=== PATIENT | male | born 1985 | race Caucasian/White ===

== ENCOUNTER 2022-04-15 17:32 | Emergency (ER) | payer OTHER, BC, SELFPAY ==
[2022-04-15 17:38] VITALS: BP 135/78; PULSE 103; RESP 16; TEMP 36.8; O2SAT 95; BMI 31.7
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
[2022-04-15] MEDS: tetanus-dipt-pertussis 0.5 mL SDV IM (18:30)
[2022-04-15] MEDS: amoxicillin-clav 875-125 mg Tablet 1 TAB PO (18:32)
[2022-04-15 18:55] VITALS: BP 146/82; PULSE 90; RESP 16; O2SAT 95
== END 2022-04-15 18:58 | disposition home or self-care (01) ==
PROVIDERS: Emergency Provider Physician Assistant; Family Provider Electrodiagnostic Medicine; PCP Electrodiagnostic Medicine
DX: S81.852A Open bite, left lower leg, initial encounter (principal); W54.0XXA Bitten by dog, initial encounter; Y99.0 Civilian activity done for income or pay; Z23 Encounter for immunization
CPT/HCPCS: 90471; 90715; 99283

== ENCOUNTER 2023-01-30 19:10 | Emergency (ER) | payer OTHER, SELFPAY ==
[2023-01-30 19:17] VITALS: BP 158/95; PULSE 88; RESP 17; TEMP 36.7; O2SAT 96; BMI 32.5
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
== END 2023-01-30 19:50 | disposition home or self-care (01) ==
PROVIDERS: Emergency Provider Nurse Practitioner Family; PCP Electrodiagnostic Medicine
DX: S86.112A Strain of other muscle(s) and tendon(s) of posterior muscle group at lower leg level, left leg, initial encounter (principal); Y35.811A Legal intervention involving manhandling, law enforcement official injured, initial encounter; Y99.0 Civilian activity done for income or pay
CPT/HCPCS: 99282

== ENCOUNTER 2023-02-19 11:55 | Outpatient (CLI) | payer OTHER, SELFPAY ==
--- NOTE | 2023-02-19 12:00 | MR_ITS ---
WS: [id number] MRI LEFT LOWER EXTREMITY WITHOUT CONTRAST. COMPARISON: LEFT ankle radiograph 02/06/2023 Multiplanar, multisequence imaging is performed without contrast. There is a moderate amount of fluid between the muscle bellies of the medial head of the gastrocnemiu s and the soleus. This is along the expected location of the plantaris tendon. Fluid extends from the proximal tibia and distally. Focal area of decreased signal distally may be a ruptured retracted reyna ntaris tendon. This does extend along the medial border of the Achilles tendon which is the normal po sition of the plantaris tendon. There is additional diffuse interstitial edema involving the majority of the medial head of the gastr ocnemius. More focal increased signal along the anterior most portion of the medial head of the gastr ocnemius at the level of the mid tibia suspect this is also a partial tear. This is in the distal mos t medial head of the gastrocnemius muscle. No marrow signal abnormality. IMPRESSION: 1. Fluid extending between the medial head of the gastrocnemius and the soleus. 2. Suspect ruptured plantaris tendon with retraction of the tendon. 3. Additional edema throughout majority of the medial head of the gastrocnemius. There is more focal fluid along the anterior mid medial head of the gastrocnemius. Suspect partial tear of the gastrocne mius muscle.
== END 2023-02-19 11:56 | disposition home or self-care (01) ==
LOC: RAD 11:55
PROVIDERS: PCP Electrodiagnostic Medicine; Visit Provider Podiatrist Foot & Ankle Surgery
DX: S86.119A Strain of other muscle(s) and tendon(s) of posterior muscle group at lower leg level, unspecified leg, initial encounter (principal); X58.XXXA Exposure to other specified factors, initial encounter
CPT/HCPCS: 73718

== ENCOUNTER → 2024-03-02 10:58 | Outpatient (BNVA) | payer OTHER, SELFPAY | PROVIDERS: Visit Provider Registered Nurse Neonatal Intensive Care | DX: J02.9 Acute pharyngitis, unspecified (principal) | CPT/HCPCS: 87880 ==

== ENCOUNTER → 2024-09-08 09:21 | Outpatient (BNVA) | payer OTHER, SELFPAY | PROVIDERS: Visit Provider Emergency Medicine | DX: J02.9 Acute pharyngitis, unspecified (principal) | CPT/HCPCS: 87071; 87880 ==

== ENCOUNTER 2025-04-07 14:01 | Emergency (ER) | payer OTHER, SELFPAY ==
[2025-04-07 14:03] VITALS: BP 146/100; PULSE 98; RESP 20; TEMP 37.2; O2SAT 97
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
[2025-04-07 14:18] VITALS: BP 146/100; PULSE 98; O2SAT 97
--- OUTSIDE RECORDS SUMMARY | 2025-04-07 15:02 | XMS_ITS | Clinical Summary ---
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
--- OUTSIDE RECORDS SUMMARY | 2025-04-07 15:02 | XMS_ITS | Encounter Summary ---
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
--- OUTSIDE RECORDS SUMMARY | 2025-04-07 15:02 | XMS_ITS | Encounter Summary ---
Author Organization [facility] Address [address] [place] [address] Care Team Providers Care Finger Grip Machine Operator Name Role Phone Unavailable Primary Care Provider Unavailabl e Encounter Details Date Type Department Care Team (Latest Contact Info) Description 05/22/2002 Outpatient Historical [facility] Dermatology- [facility] [address] [place] [address] Rangel Lewis MD NO ADDRESS ON FILE ACNE NEC (Primary Dx) Social History Tobacco Use Types Packs/Day Years Used Date Smoking Tobacco: Never Assessed Sex and Gender Information Value Date Recorded Sex Assigned at Not on file 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
--- OUTSIDE RECORDS SUMMARY | 2025-04-07 15:02 | XMS_ITS | Encounter Summary ---
Author Organization [facility] Address [address] [place] [address] Care Team Providers Care Aircraft Stress Analyst Name Role Phone Unavailable Primary Care Provider Unavailabl e Encounter Details Date Type Department Care Team (Latest Contact Info) Description 07/20/2002 Outpatient Historical [facility] Dermatology- [facility] [place] [address] [place] [address] Rangel Lewis MD NO ADDRESS ON FILE ACNE NEC (Primary Dx) Social History Tobacco Use Types Packs/Day Years Used Date Smoking Tobacco: Never Assessed Sex and Gender Information Value Date Recorded Sex Assigned at Not on file 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
== END 2025-04-07 14:19 | disposition home or self-care (01) ==
PROVIDERS: Emergency Provider Emergency Medicine
DX: S16.1XXA Strain of muscle, fascia and tendon at neck level, initial encounter (principal); X58.XXXA Exposure to other specified factors, initial encounter
CPT/HCPCS: 96372; 99284; J1100; J1885